=== PATIENT | female | born 1990 | race Caucasian/White ===

== ENCOUNTER 2020-08-21 15:23 | Inpatient (IN) | payer MEDICAID ==
[~2020-08-21] VITALS: Ht 151.6 cm; Wt 73.8 kg
[2020-08-21 10:15] VITALS: BP 86/62
[2020-08-21] MEDS ORDERED: ACETAMINOPHEN 500 MG TABLET ONE (15:46)
[2020-08-21] MEDS ORDERED: HYDROmorphone 1 MG/ML, 1ML INJ ONE ×2 (15:48→17:51)
[2020-08-21] MEDS ORDERED: ONDANSETRON 2MG/ML, 2ML ONE ×3 (15:48→21:02)
[2020-08-21] MEDS: HYDROmorphone 1 MG/ML, 1ML INJ IVPush PRN ×2 (15:53→17:54)
--- NOTE | 2020-08-21 15:59 | NUR ---
PT PRESENTING FEBRILE AND TACHYCARDIAC FROM [facility]. ORDERED TYLENOL AND FLUIDS STARTED ALONG WITH PAIN AND NAUSEA MEDS. LAB IN NOW DRAWING LABS.
[2020-08-21] MEDS ORDERED: ONDANSETRON 2MG/ML, 2ML IVPush ONE ×2 (16:00→18:00)
[2020-08-21] MEDS ORDERED: ACETAMINOPHEN 325 MG TABLET PO ONE (16:00)
[2020-08-21] MEDS ORDERED: SODIUM CHLORIDE 0.9% 1,000ML IVBOLUS ONE ×2 (16:00→18:00)
[2020-08-21] MEDS ORDERED: SODIUM CHLORIDE FLUSH 10ML SYR IVF ONE (16:00)
--- NOTE | 2020-08-21 16:23 | NUR ---
URINE SAMPLE SENT TO LAB. PT ABLE TO AMBULATE STEADILY TO BATHROOM TO VOID.
[2020-08-21 16:27] LABS: ALBUMIN 3.2 g/dL (3.4-5.0); ANION GAP 9 mmol/L (5-15); CALCIUM 8.3 mg/dL (8.5-10.1); CHLORIDE 111 mmol/L (98-107); CREATININE 1.06 mg/dL (0.55-1.02)
[2020-08-21 16:31] LABS: MICROSCOPIC AUTO
--- NOTE | 2020-08-21 17:06 | NUR ---
BLOOD CULTURES HAVE BEEN DRAWN.
[2020-08-21] MEDS ORDERED: HYDROcodone/APAP 5/325 TABLET PO ONE (17:30)
[2020-08-21 17:36] LABS: MEAN CORPUSCULAR HEMOGLOBIN 32.6 pg (27.0-34.8); MEAN CORPUSCULAR HGB CONC 33.5 g/dL (32.4-35.8); MEAN PLATELET VOLUME 8.1 fL (7.4-10.4); PLATELET COUNT 154 x10^3/uL (130-400); RED BLOOD COUNT 3.84 x10^6/uL (3.82-5.3); RED CELL DISTRIBUTION WIDTH 12.8 % (9.6-15.2)
[2020-08-21 17:41] LABS: MD YES
[2020-08-21] MEDS ORDERED: IBUPROFEN 600 MG TABLET ONE (17:50)
[2020-08-21] MEDS ORDERED: IBUPROFEN 200 MG TABLET PO ONE (18:00)
[2020-08-21 18:04] LABS: BANDS%(MANUAL) 11 % (0-7); LYMPH#(MANUAL) 0.61 x10^3/uL (1-3.4); LYMPHS% (MANUAL) 34 % (22-44); MONOS#(MANUAL) 0.02 x10^3/uL (0.3-2.7); MONOS% (MANUAL) 1 % (2-9); SEG#(MANUAL) 0.97 x10^3/uL (1.8-6.8); SEGS% (MANUAL) 54 % (42-75)
[2020-08-21 18:06] LABS: <PLATELET ESTIMATE> ADEQUATE; <RBC MORPHOLOGY> NORMAL
[2020-08-21 18:07] LABS: <PLT MORPHOLOGY> NORMAL PLT MORPH
--- NOTE | 2020-08-21 18:09 | NUR ---
PT MEDICATED FOR PAIN AND NAUSEA. 2ND LITER HUNG. PT RECEIVED RAPID COVID TEST. FRIEND AT BEDSIDE. WILL CONTINUE TO MONITOR. PT FEVER HAS IMPROVED, HR REMAINS ELEVATED. WILL CONTINUE TO MONITOR.
--- NOTE | 2020-08-21 18:20 | NUR ---
PT PLACED ON 2L O2 PER N/C DUE TO DESATING TO 82% AFTER PAIN MEDIA MONITOR
--- NOTE | 2020-08-21 19:00 | NUR ---
REPORT RECEIVED FROM BLADIMIR LIGHT.
[2020-08-21] MEDS ORDERED: OMNIPAQUE 350 MG/ML, 100ML BOTTLE ONE (19:13)
[2020-08-21] MEDS ORDERED: FENTANYL PF 100 MCG/2ML ONE ×2 (19:24→19:51)
[2020-08-21] MEDS ORDERED: FENTANYL PF 100 MCG/2ML IVPush ONE ×2 (19:30)
[2020-08-21] MEDS ORDERED: SODIUM CHLORIDE 0.9% 1,000 ML IV ONE (19:30)
--- NOTE | 2020-08-21 19:30 | NUR ---
PT WITH INCREASING PAIN /, SPOKE WITH PA, MED ORDERS PLACED. PT MEDICATED FOR PAIN.
[2020-08-21] MEDS ORDERED: NALOXONE 1 MG/ML, 2ML ONE (19:51)
[2020-08-21] MEDS ORDERED: FLUMAZENIL 0.1 MG/1 ML, 5ML ONE (19:51)
[2020-08-21] MEDS ORDERED: MIDAZOLAM 1 MG/ML, 5ML ONE (19:51)
[2020-08-21] MEDS ORDERED: LIDOCAINE 1%, 20ML ONE (19:54)
--- NOTE | 2020-08-21 19:59 | NUR ---
PT TAKEN TO IR FOR PROCEDURE BY [employer] WORKER
[2020-08-21] MEDS ORDERED: VISIPAQUE 270 MG/ML, 50ML BOTTLE ONE (20:00)
[2020-08-21] MEDS ORDERED: ENALAPRILAT 1.25 MG/ML, 2ML IVPush PRN (20:30)
[2020-08-21] MEDS ORDERED: DOCUSATE 100 MG CAPSULE PO PRN (20:30)
[2020-08-21] MEDS ORDERED: GUAIFENESIN/DM 200-20MG, 10ML UDC PO PRN (20:30)
[2020-08-21] MEDS ORDERED: ACETAMINOPHEN 325 MG TABLET PO PRN (20:30)
[2020-08-21] MEDS ORDERED: CIPROFLOXACIN/PMX 400MG/200ML 200 ML IV ONE (20:30)
[2020-08-21] MEDS ORDERED: TEMAZEPAM 15 MG CAPSULE PO PRN (20:30)
[2020-08-21] MEDS ORDERED: METHOCARBAMOL 500 MG TABLET PO PRN (20:30)
--- NOTE | 2020-08-21 20:35 | NUR ---
JOSÉ MIGUEL SCHROEDER - [phone]
--- NOTE | 2020-08-21 20:59 | NUR ---
PT BACK FROM IR. R NEPHROSTOMY TUBE IN PLACE DRAINING [place] RED FLUID. RI REPORT PT NOT ABLE TO TOLERATE SEDATION DUE TO HAVING 2 GLASSES OF WATER. PT TOLERATED PROCEDURE WELL OTHERWISE.
--- NOTE | 2020-08-21 21:00 | NUR ---
REPORT GIVEN TO LÓPEZ
[2020-08-21] MEDS: ONDANSETRON 2MG/ML, 2ML IVPush PRN (21:03)
--- NOTE | 2020-08-21 21:06 | NUR ---
PRECEPTOR: PT WITH COMPLAINT OF NAUSEA. MEDICATED WITH ZOFRAN PER [facility].
--- NOTE | 2020-08-21 21:06 | NUR ---
RN FROM IR THAT ASSISTED IN PROCEDURE STATS PT WAS GIVEN 400MG CIPRO VIA IVPB IN IR. THIS WAS NOT DOCUMENTED IN [facility].
[2020-08-21] MEDS: SODIUM CHLORIDE 0.9% 1,000 ML IV SCH (21:41)
[2020-08-21] MEDS ORDERED: CEFTRIAXONE PMX 1GM/50ML 50 ML IV SCH (22:00)
[2020-08-21] MEDS: OXYcodone IR 5MG TABLET PO PRN (22:09)
[2020-08-21 22:17] VITALS: BP 88/56
[2020-08-21 22:35] VITALS: BP 84/50
[2020-08-21] MEDS ORDERED: LACTATED RINGERS 1,000 ML IVBOLUS ONE (23:00)
[2020-08-22] VITALS (12 sets, daily range): BP systolic 81–103; BP diastolic 48–65
[2020-08-22] MEDS ORDERED: LACTATED RINGERS 1,000 ML IVBOLUS ONE ×2 (00:30→02:00)
[2020-08-22 03:12] LABS: MEAN CORPUSCULAR HEMOGLOBIN 33.2 pg (27.0-34.8); MEAN CORPUSCULAR HGB CONC 33.9 g/dL (32.4-35.8); PLATELET COUNT 112 x10^3/uL (130-400); RED BLOOD COUNT 3.17 x10^6/uL (3.82-5.3); RED CELL DISTRIBUTION WIDTH 13.1 % (9.6-15.2)
[2020-08-22 03:22] LABS: ANION GAP 5 mmol/L (5-15); CALCIUM 7.2 mg/dL (8.5-10.1); CHLORIDE 111 mmol/L (98-107); CREATININE 1.19 mg/dL (0.55-1.02)
[2020-08-22 03:59] LABS: MD YES
[2020-08-22] MEDS ORDERED: MAGNESIUM SULFATE PMX 2GM/50ML 50 ML IV ONE ×2 (04:00→16:30)
[2020-08-22 04:02] LABS: <PLATELET ESTIMATE> DECREASED; <RBC MORPHOLOGY> NORMAL; BAND#(MANUAL) 2.35 x10^3/uL; BANDS%(MANUAL) 22 % (0-7); EOS#(MANUAL) 0.11 x10^3/uL (0.0-0.4); EOS% (MANUAL) 1 % (1-7); LYMPH#(MANUAL) 0.75 x10^3/uL (1-3.4); LYMPHS% (MANUAL) 7 % (22-44); MONOS#(MANUAL) 0.21 x10^3/uL (0.3-2.7); MONOS% (MANUAL) 2 % (2-9); MYELOCYTES# (MANUAL) 0.11 x10^3/uL (0-0); MYELOCYTES% (MANUAL) 1 % (0-0); SEG#(MANUAL) 7.17 x10^3/uL (1.8-6.8); SEGS% (MANUAL) 67 % (42-75)
[2020-08-22 04:03] LABS: <PLT MORPHOLOGY> NORMAL PLT MORPH
[2020-08-22] MEDS ORDERED: SODIUM CHLORIDE 0.9% 1,000ML IVBOLUS ONE (07:00)
[2020-08-22] MEDS: SODIUM CHLORIDE 0.9% 1,000 ML IV SCH ×2 (07:29→20:00)
[2020-08-22] MEDS: KETOROLAC 30 MG/1 ML IVPush PRN ×3 (08:28→22:14)
[2020-08-22] MEDS: CEFTRIAXONE PMX 2GM/50ML 50 ML IVPB SCH (08:28)
[2020-08-22] MEDS ORDERED: MAGNESIUM CHLORIDE 70MG TAB DR PO SCH (09:00)
[2020-08-22] MEDS: OXYcodone IR 5MG TABLET PO PRN ×2 (12:40→18:28)
[2020-08-22] MEDS: HYDROmorphone 2 MG/ML, 1ML IVPush PRN ×2 (15:42→20:19)
[2020-08-22] MEDS: CALCIUM CARBONATE 500 MG TAB.CHEW PO PRN (16:48)
[2020-08-22] MEDS: ONDANSETRON 2MG/ML, 2ML IVPush PRN (20:19)
[2020-08-23 01:18] VITALS: BP 98/62
[2020-08-23] MEDS: HYDROmorphone 2 MG/ML, 1ML IVPush PRN ×5 (02:54→20:27)
[2020-08-23] MEDS: OXYcodone IR 5MG TABLET PO PRN ×3 (03:40→15:02)
[2020-08-23 06:33] LABS: MEAN CORPUSCULAR HEMOGLOBIN 32.6 pg (27.0-34.8); MEAN CORPUSCULAR HGB CONC 33.3 g/dL (32.4-35.8); MEAN PLATELET VOLUME 9.6 fL (7.4-10.4); PLATELET COUNT 109 x10^3/uL (130-400); RED BLOOD COUNT 3.34 x10^6/uL (3.82-5.3); RED CELL DISTRIBUTION WIDTH 13.5 % (9.6-15.2)
[2020-08-23 06:39] LABS: ALBUMIN 2.4 g/dL (3.4-5.0); CHLORIDE 113 mmol/L (98-107)
[2020-08-23 06:44] LABS: ALANINE AMINOTRANSFERASE 42 U/L (12-78); ALKALINE PHOSPHATASE 106 U/L (45-117); ANION GAP 7 mmol/L (5-15); BILIRUBIN,TOTAL 0.3 mg/dL (0.2-1.0); CALCIUM 8.4 mg/dL (8.5-10.1); CREATININE 1.01 mg/dL (0.55-1.02); TOTAL PROTEIN 5.7 g/dL (6.4-8.2)
[2020-08-23 07:16] VITALS: BP 100/70
[2020-08-23 08:35] LABS: MD YES
[2020-08-23 08:39] LABS: BAND#(MANUAL) 4.16 x10^3/uL; BANDS%(MANUAL) 27 % (0-7); EOS#(MANUAL) 0.15 x10^3/uL (0.0-0.4); EOS% (MANUAL) 1 % (1-7); LYMPH#(MANUAL) 1.39 x10^3/uL (1-3.4); LYMPHS% (MANUAL) 9 % (22-44); MONOS#(MANUAL) 0.31 x10^3/uL (0.3-2.7); MONOS% (MANUAL) 2 % (2-9); SEG#(MANUAL) 9.39 x10^3/uL (1.8-6.8); SEGS% (MANUAL) 61 % (42-75)
[2020-08-23 08:40] LABS: <PLATELET ESTIMATE> DECREASED; <PLT MORPHOLOGY> NORMAL PLT MORPH; <RBC MORPHOLOGY> NORMAL; PMNS WITH VACUOLES 1+
[2020-08-23] MEDS: CEFTRIAXONE PMX 2GM/50ML 50 ML IVPB SCH (08:48)
[2020-08-23] MEDS: SODIUM CHLORIDE 0.9% 1,000 ML IV SCH ×2 (11:33→20:27)
[2020-08-23 12:43] VITALS: BP 113/77
[2020-08-23] MEDS: CALCIUM CARBONATE 500 MG TAB.CHEW PO PRN (14:58)
[2020-08-23] MEDS: ONDANSETRON 2MG/ML, 2ML IVPush PRN ×2 (15:45→20:27)
[2020-08-23 19:00] VITALS: BP 130/90
[2020-08-24] MEDS: HYDROmorphone 2 MG/ML, 1ML IVPush PRN ×7 (00:04→21:17)
[2020-08-24] MEDS: ONDANSETRON 2MG/ML, 2ML IVPush PRN ×4 (00:04→21:17)
[2020-08-24 01:40] VITALS: BP 115/70
[2020-08-24 05:13] LABS: ANION GAP 5 mmol/L (5-15); CALCIUM 8.3 mg/dL (8.5-10.1); CHLORIDE 113 mmol/L (98-107); CREATININE 0.82 mg/dL (0.55-1.02)
[2020-08-24 05:22] LABS: MEAN CORPUSCULAR HEMOGLOBIN 32.1 pg (27.0-34.8); MEAN CORPUSCULAR HGB CONC 32.8 g/dL (32.4-35.8); MEAN PLATELET VOLUME 10.1 fL (7.4-10.4); PLATELET COUNT 145 x10^3/uL (130-400); RED BLOOD COUNT 3.36 x10^6/uL (3.82-5.3); RED CELL DISTRIBUTION WIDTH 13.3 % (9.6-15.2)
[2020-08-24] MEDS: SODIUM CHLORIDE 0.9% 1,000 ML IV SCH ×3 (06:13→22:27)
[2020-08-24 06:17] LABS: MD YES
[2020-08-24 06:18] LABS: BAND#(MANUAL) 1.78 x10^3/uL; BANDS%(MANUAL) 8 % (0-7); LYMPH#(MANUAL) 2.68 x10^3/uL (1-3.4); LYMPHS% (MANUAL) 12 % (22-44); MONOS#(MANUAL) 0.67 x10^3/uL (0.3-2.7); MONOS% (MANUAL) 3 % (2-9); SEG#(MANUAL) 17.17 x10^3/uL (1.8-6.8); SEGS% (MANUAL) 77 % (42-75)
[2020-08-24 06:19] LABS: <PLATELET ESTIMATE> ADEQUATE; <PLT MORPHOLOGY> NORMAL PLT MORPH; <RBC MORPHOLOGY> NORMAL
[2020-08-24 07:16] VITALS: BP 130/87
[2020-08-24] MEDS: CEFTRIAXONE PMX 2GM/50ML 50 ML IVPB SCH (10:10)
[2020-08-24 12:35] VITALS: BP 142/88
[2020-08-24] MEDS: VALACYCLOVIR 500MG TABLET PO SCH (15:37)
[2020-08-24 19:45] VITALS: BP 142/92
[2020-08-24] MEDS: CALCIUM CARBONATE 500 MG TAB.CHEW PO PRN (21:38)
[2020-08-24] MEDS: OXYcodone IR 5MG TABLET PO PRN (22:30)
[2020-08-25 00:43] VITALS: BP 139/92
[2020-08-25] MEDS: VALACYCLOVIR 500MG TABLET PO SCH (02:10)
[2020-08-25] MEDS: HYDROmorphone 2 MG/ML, 1ML IVPush PRN ×3 (02:18→10:46)
[2020-08-25] MEDS: OXYcodone IR 5MG TABLET PO PRN (03:16)
[2020-08-25] MEDS: KETOROLAC 30 MG/1 ML IVPush PRN (04:15)
[2020-08-25 04:56] LABS: MEAN CORPUSCULAR HEMOGLOBIN 32.2 pg (27.0-34.8); MEAN CORPUSCULAR HGB CONC 33.1 g/dL (32.4-35.8); MEAN PLATELET VOLUME 9.5 fL (7.4-10.4); PLATELET COUNT 170 x10^3/uL (130-400); RED BLOOD COUNT 3.57 x10^6/uL (3.82-5.3)
[2020-08-25 05:07] LABS: ALBUMIN 2.5 g/dL (3.4-5.0); ANION GAP 5 mmol/L (5-15); CALCIUM 8.3 mg/dL (8.5-10.1); CHLORIDE 110 mmol/L (98-107)
[2020-08-25 05:11] LABS: ALANINE AMINOTRANSFERASE 25 U/L (12-78); ALKALINE PHOSPHATASE 132 U/L (45-117); BILIRUBIN,TOTAL 0.3 mg/dL (0.2-1.0); CREATININE 0.73 mg/dL (0.55-1.02); TOTAL PROTEIN 6.5 g/dL (6.4-8.2)
[2020-08-25 05:40] LABS: MD YES
[2020-08-25 05:45] LABS: BAND#(MANUAL) 0.31 x10^3/uL; BANDS%(MANUAL) 2 % (0-7); EOS#(MANUAL) 0.16 x10^3/uL (0.0-0.4); EOS% (MANUAL) 1 % (1-7); LYMPH#(MANUAL) 1.87 x10^3/uL (1-3.4); LYMPHS% (MANUAL) 12 % (22-44); MONOS#(MANUAL) 0.62 x10^3/uL (0.3-2.7); MONOS% (MANUAL) 4 % (2-9); REACTIVE LYMPHS # (MANUAL) 0.62 x10^3/uL (0-0); REACTIVE LYMPHS % (MANUAL) 4 % (0-0); SEG#(MANUAL) 12.01 x10^3/uL (1.8-6.8); SEGS% (MANUAL) 77 % (42-75)
[2020-08-25 05:46] LABS: <RBC MORPHOLOGY> NORMAL
[2020-08-25 05:47] LABS: <PLATELET ESTIMATE> ADEQUATE; <PLT MORPHOLOGY> NORMAL PLT MORPH
[2020-08-25] MEDS: ONDANSETRON 2MG/ML, 2ML IVPush PRN ×2 (06:17→15:12)
[2020-08-25] MEDS: SODIUM CHLORIDE 0.9% 1,000 ML IV SCH (06:20)
[2020-08-25 06:34] VITALS: BP 130/86
[2020-08-25] MEDS: CEFTRIAXONE PMX 2GM/50ML 50 ML IVPB SCH (08:19)
[2020-08-25 11:36] VITALS: BP 140/97
[2020-08-25] MEDS ORDERED: VALACYCLOVIR 500MG TABLET PO SCH (12:00)
[2020-08-25] MEDS ORDERED: OXYC-302 PO (14:32)
[2020-08-25] MEDS ORDERED: CEFD300C37 PO (14:32)
[2020-08-25] MEDS ORDERED: ONDA4TAB7 PO (14:32)
[2020-08-25] MEDS ORDERED: ACYC-114 PO (14:32)
== END 2020-08-25 18:38 | disposition home or self-care (01) | DRG 720 ==
LOC: ED 19:52 → EDIP 20:00 → 4WST 21:24
PROVIDERS: ADMIT Internal Medicine; ATTEND Internal Medicine
PROC: 0T9B30Z Drainage of Bladder with Drainage Device, Percutaneous Approach (ICD-10-PCS; principal; 2020-08-21)
PROC: 0T933ZZ Drainage of Right Kidney Pelvis, Percutaneous Approach (ICD-10-PCS; 2020-08-22)
DX: A41.9 Sepsis, unspecified organism (principal); E87.2 Acidosis; B00.1 Herpesviral vesicular dermatitis; D70.3 Neutropenia due to infection; E87.6 Hypokalemia; E87.8 Other disorders of electrolyte and fluid balance, not elsewhere classified; E88.09 Other disorders of plasma-protein metabolism, not elsewhere classified; J44.9 Chronic obstructive pulmonary disease, unspecified; R65.21 Severe sepsis with septic shock; N13.6 Pyonephrosis; Z20.828 Contact with and (suspected) exposure to other viral communicable diseases; Z87.442 Personal history of urinary calculi; Z93.6 Other artificial openings of urinary tract status; Z79.899 Other long term (current) drug therapy; Z79.01 Long term (current) use of anticoagulants
CPT/HCPCS: 36415; 50432; 71045; 74018; 74177; 80048; 80053; 81001; 82040; 82962; 83605; 83735; 84100; 84703; 85025; 87040; 87086; 87635; 93005; 96374; 96375; 99291; C1894; G0378; J0696; J1170; J1885; J2250; J2405; J3010; Q9966; Q9967; C1729; C1769; J2310; J3475; J7030; J7120

== ENCOUNTER → 2020-08-30 | Outpatient (CLI) | payer MEDICAID, OTHER ==
[~2020-08-30] MED LIST: ACYC-114 PO; CEFD300C37 PO; ONDA4TAB7 PO; OXYC-302 PO; VISIPAQUE 270 MG/ML, 50ML BOTTLE ONE
== END | disposition home or self-care (01) ==
LOC: RAD 13:57
PROVIDERS: ATTEND Urology
DX: Z43.6 Encounter for attention to other artificial openings of urinary tract (principal); N13.2 Hydronephrosis with renal and ureteral calculous obstruction; I87.8 Other specified disorders of veins; Z87.442 Personal history of urinary calculi
CPT/HCPCS: 50389; Q9966; 50431; 74425